=== PATIENT | female | born 1970 | race Caucasian/White ===

== ENCOUNTER 2016-09-23 14:40 | Emergency (ER) | payer BC, OTHER ==
[~2016-09-23 14:40] MED LIST: TRAZ50TA35 PO
[2016-09-23 14:54] VITALS: TEMP 37.1; Ht 160 cm
[2016-09-23] MEDS ORDERED: TRAZ1TAB5 PO (16:06)
[2016-09-23] MEDS ORDERED: OXYCODONE/ACETAMINOPHEN 5-325 TAB PO STA (16:13)
--- NOTE | 2016-09-23 16:59 | DIAGNOSTIC IMAGING REPORT ---
RIGHT WRIST MIN 3 VIEWS ROUTINE CLINICAL HISTORY: Fall. Right wrist pain. COMPARISON: None FINDINGS: Alignment of the right wrist is anatomic. There is no acute fracture. IMPRESSION: No acute fracture or dislocation of the right wrist. Electronically signed by: Wil Thapa M.D. 09/23/2016 4:58 PM Dictated Date/Time: 09/23/2016 4:57 PM
--- NOTE | 2016-09-23 17:00 | DIAGNOSTIC IMAGING REPORT ---
RIGHT HAND MIN 3 VIEWS ROUTINE CLINICAL HISTORY: Right hand pain following fall. COMPARISON: None FINDINGS: There is an acute minimally displaced fracture within the base and proximal shaft of the proximal phalanx of right fifth finger. No additional fractures are identified. IMPRESSION: Acute minimally displaced fracture within the base and proximal shaft of the proximal phalanx of the right fifth finger. Electronically signed by: Wil Thapa M.D. 09/23/2016 4:59 PM Dictated Date/Time: 09/23/2016 4:58 PM
--- NOTE | 2016-09-23 17:02 | DIAGNOSTIC IMAGING REPORT ---
RIGHT KNEE 3 VIEWS CLINICAL HISTORY: Right knee pain following fall. COMPARISON: None FINDINGS: Alignment of the right knee is anatomic. There is no acute fracture or joint effusion. There may be minimal chondrocalcinosis within the menisci. There is mild osteoarthritis within the medial and patellofemoral compartments. IMPRESSION: 1. No acute fracture. 2. Mild osteoarthritis within the medial and patellofemoral compartments of the right knee. Electronically signed by: Wil Thapa M.D. 09/23/2016 5:00 PM Dictated Date/Time: 09/23/2016 4:59 PM
--- NOTE | 2016-09-23 17:03 | DIAGNOSTIC IMAGING REPORT ---
LEFT TIBIA/FIBULA 2 VIEWS ROUTINE CLINICAL HISTORY: fall; lower leg pain COMPARISON: None FINDINGS: No acute fracture or osseous lesion is identified within the left tibia or fibula. Alignment of the left knee and ankle appears anatomic. IMPRESSION: No acute fracture of the left tibia or fibula. Electronically signed by: Wil Thapa M.D. 09/23/2016 5:01 PM Dictated Date/Time: 09/23/2016 5:01 PM
--- NOTE | 2016-09-23 17:04 | DIAGNOSTIC IMAGING REPORT ---
RIGHT ANKLE MIN 3 VIEWS ROUTINE CLINICAL HISTORY: Right ankle pain following fall. Recent surgery. COMPARISON: Right ankle radiograph December 11, 2015. FINDINGS: Distal right fibular plate and screws is noted. Hardware is intact. There is no acute fracture of the right ankle. There is moderate plantar calcaneal spurring. IMPRESSION: 1. No acute fracture or dislocation of the right ankle. 2. Moderate lateral ankle soft tissue swelling. 3. Status post distal right fibular internal fixation. Electronically signed by: Wil Thapa M.D. 09/23/2016 5:03 PM Dictated Date/Time: 09/23/2016 5:02 PM
--- NOTE | 2016-09-23 17:05 | DIAGNOSTIC IMAGING REPORT ---
RIGHT FOOT MIN 3 VIEWS ROUTINE CLINICAL HISTORY: Right foot pain following fall. COMPARISON: Right foot radiograph December 11, 2015. FINDINGS: Distal right fibular internal fixation is noted. There is mild plantar calcaneal spurring. Tarsometatarsal joints are intact. There is no acute fracture within the right foot. IMPRESSION: No acute fracture or dislocation of the right foot. Electronically signed by: Wil Thapa M.D. 09/23/2016 5:04 PM Dictated Date/Time: 09/23/2016 5:03 PM
[2016-09-23] MEDS ORDERED: PERCOCET HOME PACK PO ONE (17:30)
[2016-09-23] MEDS ORDERED: OXYC-57 PO (17:38)
[2016-09-23 18:04] VITALS: BP 139/93; PULSE 70; O2SAT 97
[2016-09-23] MEDS ORDERED: DICY20TA35 PO (18:10)
--- NOTE | 2016-09-24 16:32 | EMERGENCY ROOM VISIT NOTE ---
ED Visit Note First contact with patient: 15:52 Chief Complaint: Fall. History of Present Illness: Ms. Bates is a 46-year-old white female who is brought into the ED via wheelchair complaining of right ankle, right knee, right hand/wrist and left lower leg pain following a fall. Historically patient reports she had a surgical fixation of a earlier this year of a distal right fibula fracture and last week she had a cast placed for a right fifth finger proximal phalanx fracture. Patient reports less than an hour ago she was shopping at a local [employer]. She reports she was turning a corner and slipped on a wet/sticky floor. She reports when she fell she fell onto her right knee, twisted her right ankle and then fell onto her right hand to stabilize her fall. She reports she did not strike her head at the time of the fall, have a loss of consciousness at the time of the fall and since the fall she has had no signs of head injury. Currently she reports her worst pain right now is over the anterior aspect of the right knee and the lateral aspect of the right ankle. She describes both of these pain as a sharp and throbbing sensation. She rates her discomfort 8/ 10. Her pain is nonradiating. Her pain worsens with weightbearing, ambulation and palpation. She has not identified any alleviating factors related to these pains. She has not taken any medications for these pains. Additionally she complains of pain over the lateral aspect of the right hand and wrist. She places her discomfort over the fifth metacarpal and the distal portion of the ulna. She was unable really to describe these pains and reports they feel much less then her knee and ankle pain. These pains are nonradiating. They worsen with palpation. Lastly she complains of anterior left lower leg pain extending from just inferior to the tibial tuberosity to 3-4 cm above the ankle joint. She describes this as a throbbing sensation. She does not rates this discomfort. Her pain worsens with palpation. She has not identified any alleviating factors related to the pain. She denies headache, dizziness, lightheadedness, neck pain, back pain, chest pain, shortness of breath, abdominal pain, nausea, vomiting, extremity weakness/ numbness/tingling. Review of Systems: As noted above in history of present illness. All body systems were reviewed and found to be negative as noted above. Past Medical History: As noted above, gastric ulcer, gastric reflux, iron deficient anemia, anxiety, depression, alcohol abuse, status post gastric bypass , endometrial ablation, cholecystectomy, tonsillectomy, hysterectomy. Current Medications: Desyrel, Bentyl. Allergies to Medications: Codeine, lactulose. Social History: Patient is not currently employed; she feels safe in her home environment; she denies tobacco use; she admits to alcohol use. Physical Examination: Vital Signs: Date Time Temp Pulse Resp B/P (MAP) Pulse Ox O2 Delivery O2 Flow Rate FiO2 09/23/16 18:04 70 16 139/93 97 Room Air 09/23/16 15:48 71 16 134/100 100 Room Air 09/23/16 14:54 37.1 78 20 127/83 100 Room Air GENERAL: 46-year-old female in mild to moderate distress due to pain, nontoxic- appearing, afebrile and hemodynamically stable. NEUROLOGICAL: Awake, alert and oriented to person, place and time. Answering questions appropriately and following commands. Cranial nerves II through XII grossly intact. Good short-term and long-term recall. Able to spell backwards. SKIN: Warm, dry and pink. No open soft tissue trauma noted. HEENT: Skull: Atraumatic and normocephalic. Face: Atraumatic. PERRLA. Sclera white and conjunctiva pink. Airway patent. No malocclusion. Speech normal. Trachea midline. No jugular venous distention. BACK: No tenderness over the bony cervical, thoracic and lumbar spines. Full range of motion of the cervical spine. THORAX: Lungs sounds are clear to auscultation and equal bilaterally with symmetrical chest wall. No crepitus, tenderness, subcutaneous air or deformities noted. ABDOMEN: Soft and nontender. Positive bowel sounds in all quadrants. No guarding, rigidity or organomegaly. RIGHT UPPER EXTREMITY: Patient does have a cast on the right hand for her finger fracture. That was removed. Patient had no tenderness in the shoulder, humerus, elbow or forearm. She has mild tenderness over the distal ulnar and extending into the fifth metacarpal. I do not appreciate any bony deformity or crepitus. She did have full range of motion of the wrist. Throughout the hand the skin was warm and pink and capillary refill was brisk. She was able to distinguish light sensations through all dermatomes of the hand. RIGHT LOWER EXTREMITY: No gross bony deformity. No shortening or malrotation. No tenderness in the hip or thigh. Moderate tenderness with swelling over the anterior patellar area. She had pain with lateral collateral ligament testing but I do not appreciate any laxity. There was no tenderness over the joint lines. No tenderness over the patellar tendon or hamstring tendon attachments. She did have slight decreased range of motion of the knee predominantly in flexion but she was able to reach full extension. She had no tenderness over the lower leg. She did have moderate tenderness and swelling over the lateral malleolus. I did not appreciate any bony crepitus or deformity. She was not able to tolerate ligamentous testing. I also noted tenderness over the calcaneus and over the fifth metatarsal area. No bony deformity or crepitus. She refused to do range of motion exercises due to pain. She was able to wiggle her toes. Throughout the foot the skin was warm and pink and capillary refill was brisk. LEFT LOWER EXTREMITY: No gross bony deformities and no shortening or malrotation. No tenderness over the hip, thigh, knee, ankle or foot. Moderate tenderness over the anterior lower leg with associated contusions. I do not appreciate any bony deformity or crepitus. Full range of motion of flexion and extension of the knee and plantar flexion and dorsiflexion of the ankle. 4/5 muscle strength in plantar flexion and dorsiflexion of the ankle. Throughout the foot the skin was warm and pink and capillary refill is brisk. She is able to distinguish light sensations through all dermatomes. ED Course: Patient is assessed as noted above. Patient's medication list was reviewed. Patient was given ice and one Percocet 5/325 mg tablet by mouth for pain. Right Ankle X-Rays: Were read by myself and the radiologist showing no acute fractures or dislocations. Fibular plate and screws are intact. Moderate lateral ankle swelling. Right Foot X-Rays: Were read by myself and the radiologist showing no acute fractures or dislocations of the foot. Right Hand X-Rays: Were read by myself and the radiologist showing patient's fracture within the base of the proximal shaft of the proximal phalanx of the fifth finger. No additional fractures or dislocations were noted. Right Knee X-Rays: Were read by myself and the radiologist showing no acute fractures or dislocations. Radiologist notes mild osteoarthritis within the medial and patellofemoral compartments. Right Wrist X-Rays: Were read by myself and the radiologist showing no acute fractures or dislocations. Left Lower Leg X-Rays: Were read by myself and the radiologist showing no acute fractures or dislocations. An Ortho-Glass splint was placed on patient's previous fracture of the right fifth proximal phalanx. Additionally patient was placed in a knee immobilizer and an ankle gel splint. I did trial the patient with walker and she was successful. Patient does have a walker at home she can use. Patient was educated about today's findings and instructed on her treatment plan ; she verbalizes understanding and agreement with this plan. Clinical Impression: Fall. Right hand and wrist pain. Right knee pain. Right ankle and foot pain. Left lower leg pain. Disposition: Patient discharged home in stable condition accompanied by her ; prior to departure she was reassessed and subjectively reported she was feeling better. Plan: Comfort measures including rest, ice, elevation, splint and walker use and a sliding pain medication scale of ibuprofen, acetaminophen and Percocet were discussed with the patient. Patient was given appropriate precautions for narcotic use. Patient's name was run through the state database in no acute red flags were noted. Patient was encouraged to follow-up with her orthopedic physician if no better in 6-7 days. Patient was encouraged return ED for worsening/uncontrolled pain, uncontrolled swelling, except lower extremity weakness/numbness/tingling or any new/ concerning symptoms.
== END 2016-09-23 17:59 | disposition home or self-care (01) ==
LOC: C.EDB 14:41 → C.EDD 17:59
DX: M79.641 Pain in right hand (principal); M25.531 Pain in right wrist; M25.561 Pain in right knee; M79.671 Pain in right foot; M79.662 Pain in left lower leg; W01.198A Fall on same level from slipping, tripping and stumbling with subsequent striking against other object, initial encounter; X50.1XXA Overexertion from prolonged static or awkward postures, initial encounter; S62.610D Displaced fracture of proximal phalanx of right index finger, subsequent encounter for fracture with routine healing; X58.XXXD Exposure to other specified factors, subsequent encounter; F32.9 Major depressive disorder, single episode, unspecified; Z90.710 Acquired absence of both cervix and uterus; Z90.49 Acquired absence of other specified parts of digestive tract; Z98.84 Bariatric surgery status; Z90.89 Acquired absence of other organs; Z98.890 Other specified postprocedural states; Z79.899 Other long term (current) drug therapy